=== PATIENT | female | born 1960 | race Caucasian/White ===

== ENCOUNTER 2025-03-13 06:57 | Emergency (ER) | payer MEDICARE, OTHER ==
[~2025-03-13] VITALS: Ht 160 cm; Wt 59.0 kg
[2025-03-13 07:45] LABS: PLATELET COUNT (AUTO) 200 K/uL (150-450); RED BLOOD CELL COUNT(AUTO) 4.45 MIL/uL (4.0-5.2); RED CELL DISTRIBUTION WIDTH 13.7 % (11.5-15.0); WHITE BLOOD COUNT (AUTO) 15.1 K/uL (4.3-11.0)
[2025-03-13] MEDS: IV NS 0.9% 1,000 ML BAG IV ONE (07:48)
[2025-03-13 07:53] LABS: APPEARANCE,URINE TURBID (CLEAR); BLOOD, URINE 3+ Ery/uL (NEGATIVE); LEUKOCYTE ESTERASE ,URINE 2+ (NEGATIVE); NITRITE, URINE POSITIVE (NEGATIVE); UGLUCOSE NEGATIVE (NEGATIVE)
[2025-03-13 07:55] LABS: CALCIUM, SERUM 9.0 mg/dL (8.5-10.1); CREATININE 1.4 mg/dL (0.6-1.3); SODIUM SERUM 136.0 mmol/L (136-145); UREA NITROGEN, BLOOD 20.0 mg/dL (7-18)
[2025-03-13 07:58] LABS: ASPARTATE AMINOTRANSFERASE 29.0 U/L (15-37); TOTAL PROTEIN, SERUM 7.0 g/dL (6.4-8.2)
[2025-03-13 08:08] LABS: ADD URINE CULTURE YES; SQUAMOUS EPITHELIAL CELL,UR 0-2 /HPF (None Seen)
[2025-03-13] MEDS ORDERED: POTASSIUM CHLORIDE 20 MEQ TAB.PRT.SR PO ONE (08:36)
[2025-03-13] MEDS ORDERED: LEVOFLOXACIN (250MG) 250 MG TABLET ONE (08:36)
[2025-03-13] MEDS: LEVOFLOXACIN (250MG) 250 MG TABLET PO SCH (08:40)
[2025-03-13] MEDS: POTASSIUM CHLORIDE 20 MEQ TAB.PRT.SR PO ONE (08:40)
[2025-03-13] MEDS ORDERED: LEVO500T90 PO (08:48)
[2025-03-13] MEDS ORDERED: IBUP-1490 PO (08:48)
[2025-03-13 09:06] VITALS: BP 118/73; TEMP 98.6; O2SAT 99
== END 2025-03-13 09:12 | disposition home or self-care (01) ==
LOC: ER 07:01
DX: N12 Tubulo-interstitial nephritis, not specified as acute or chronic (principal); N20.2 Calculus of kidney with calculus of ureter; I51.9 Heart disease, unspecified; E87.6 Hypokalemia; E78.5 Hyperlipidemia, unspecified; Z88.0 Allergy status to penicillin
CPT/HCPCS: 99284; 74176; 96360; 85025; 80048; 87077; 87086; 83690; 80076; 87186; 81001; 36415; J7030